=== PATIENT | female | born 1965 | race Two or more races ===

== ENCOUNTER 2019-06-22 06:20 | Day surgery (SDC) | payer OTHER ==
[~2019-06-22 06:20] MED LIST: IBERSARTAN PO
[2019-06-22] MEDS ORDERED: DUI500 PO (09:33)
[2019-06-22] MEDS ORDERED: TRAM1TAB98 PO (09:33)
== END 2019-06-22 14:15 | disposition home or self-care (01) ==
LOC: CIR.AMB 06:20
DX: M23.321 Other meniscus derangements, posterior horn of medial meniscus, right knee (principal); M17.11 Unilateral primary osteoarthritis, right knee; M65.861 Other synovitis and tenosynovitis, right lower leg

== ENCOUNTER 2024-02-11 14:32 | Outpatient (CLI) | payer OTHER ==
[~2024-02-11 14:32] MED LIST changes: +DUI500 PO; +TRAM1TAB98 PO
== END 2024-02-11 14:46 | disposition home or self-care (01) ==
LOC: MAMO-SONO 14:32
PROVIDERS: ATTEND Obstetrics & Gynecology
DX: N63.10 Unspecified lump in the right breast, unspecified quadrant (principal); N63.20 Unspecified lump in the left breast, unspecified quadrant